=== PATIENT | female | born 1945 | race Two or more races ===

== ENCOUNTER → 2017-11-04 16:58 | Outpatient (CLI) | payer OTHER | END | disposition home or self-care (01) | LOC: RAD 16:58 | DX: M70.71 Other bursitis of hip, right hip (principal); M70.72 Other bursitis of hip, left hip ==

== ENCOUNTER 2019-06-12 08:29 | Inpatient (IN) | payer OTHER ==
[~2019-06-12] VITALS: Ht 157.5 cm; Wt 71.7 kg
[2019-06-12] MEDS ORDERED: SINGULAIR10 MG (08:40)
[2019-06-12] MEDS ORDERED: SYNTHROID137 MCG (08:40)
--- NOTE | 2019-06-12 08:45 | NUR ---
SE RECIBE PTE LA CUAL REFIERE PRESENTAR DOLOR ABD DESDE EL FRANKLYN VIERNES ACOMPANADO POR VARIOS EPISODIOS DE DIARREAS TENIENDO EL ULTIMO EN LA MANANA DE HOY.
--- NOTE | 2019-06-12 09:08 | NUR ---
MS Karey LESTER ORIENTA A PACIENTE SOBRE ORDENES MEDICAS, COLECTA MUESTRAS DE DIANA, CANALIZA VENA Y ADMINISTRA MEDICAMENTOS. SE HACE ENTREGA DE CONSTRASTE CON INSTRUCCIONES PREVIAS.
--- NOTE | 2019-06-12 09:40 | NUR ---
SE CANALIZA AL PACIENTE CON UN ANGIO #20 EN LA MANO DERECHA. SE VERIFICA PATENTICIDAD Y LA MISMA ESTA PATENTE. SE EVALUA EL AREA Y LA MISMA ESTA MARCO DE EDEMA Y ENROJECIMIENTO. SE MICHELL A PACIENTE ACOMPANADA. CON BARANDAS ELEVADAS Y CABEZERA A 45%. ELIZABETH BAJADA Y CON TIMBRE ACCESIBLE.
== END 2019-06-19 17:19 | disposition home or self-care (01) | DRG 341 ==
LOC: ER 08:29 → SURH 14:03 → SEC-K 14:03 → O/R 16:52 → SURH 19:12
PROVIDERS: ADMIT Surgery
PROC: BW21Y0Z Computerized Tomography (CT Scan) of Abdomen and Pelvis using Other Contrast, Unenhanced and Enhanced (ICD-10-PCS; 2019-06-12)
PROC: 0DTJ4ZZ Resection of Appendix, Percutaneous Endoscopic Approach (ICD-10-PCS; principal; 2019-06-12 15:00)
DX: K35.31 Acute appendicitis with localized peritonitis and gangrene, without perforation (principal); A41.9 Sepsis, unspecified organism; R18.8 Other ascites; J45.41 Moderate persistent asthma with (acute) exacerbation; K91.31 Postprocedural partial intestinal obstruction; E03.8 Other specified hypothyroidism; R10.31 Right lower quadrant pain; R31.0 Gross hematuria; B96.29 Other Escherichia coli [E. coli] as the cause of diseases classified elsewhere; B96.5 Pseudomonas (aeruginosa) (mallei) (pseudomallei) as the cause of diseases classified elsewhere; B95.4 Other streptococcus as the cause of diseases classified elsewhere; B96.7 Clostridium perfringens [C. perfringens] as the cause of diseases classified elsewhere

== ENCOUNTER 2020-03-24 15:52 | Emergency (ER) | payer OTHER ==
[~2020-03-24] VITALS: Ht 157.5 cm; Wt 69.9 kg
[~2020-03-24 15:52] MED LIST: SINGULAIR10 MG; SYNTHROID137 MCG
[2020-03-24] MEDS ORDERED: OMEPRAZOLE20 MG (16:06)
== END 2020-03-24 19:24 | disposition designated cancer center or children's hospital (05) ==
LOC: ER 15:52 → CPU-OBS 15:55 → ER 19:24
DX: I21.29 ST elevation (STEMI) myocardial infarction involving other sites (principal)

== ENCOUNTER 2020-08-13 10:58 | Outpatient (CLI) | payer OTHER ==
[~2020-08-13 10:58] MED LIST changes: +OMEPRAZOLE20 MG
== END 2020-08-13 11:17 | disposition home or self-care (01) ==
LOC: NUCLEAR 10:58
PROVIDERS: ATTEND Physical Medicine & Rehabilitation
DX: I87.2 Venous insufficiency (chronic) (peripheral) (principal)

== ENCOUNTER 2020-08-14 15:27 | Outpatient (CLI) | payer OTHER | END 2020-08-14 15:30 | disposition home or self-care (01) | LOC: NUCLEAR 15:27 | PROVIDERS: ATTEND Physical Medicine & Rehabilitation | DX: I70.211 Atherosclerosis of native arteries of extremities with intermittent claudication, right leg (principal) ==

== ENCOUNTER 2021-07-28 08:00 | Outpatient (CLI) | payer OTHER | END 2021-07-28 16:35 | disposition home or self-care (01) | LOC: PPH VACUNA 08:00 | PROVIDERS: ATTEND Emergency Medicine Pediatric Emergency Medicine | DX: Z23 Encounter for immunization (principal) ==

== ENCOUNTER 2022-01-30 08:00 | Outpatient (CLI) | payer OTHER | END 2022-01-30 08:30 | disposition home or self-care (01) | LOC: PPH VACUNA 08:00 | PROVIDERS: ATTEND Emergency Medicine Pediatric Emergency Medicine | DX: Z23 Encounter for immunization (principal) ==

== ENCOUNTER 2024-02-11 07:14 | Outpatient (CLI) | payer OTHER ==
[~2024-02-11 07:14] MED LIST changes: +DICLOFENAC POTA50 MG PO; +ORPHENADRINE C100 MG PO
== END 2024-02-11 07:15 | disposition home or self-care (01) ==
LOC: NUCLEAR 07:14
PROVIDERS: ATTEND Internal Medicine
DX: I20.9 Angina pectoris, unspecified (principal)
CPT/HCPCS: 78452; 93017; A9500